=== PATIENT | female | born 1955 | race Caucasian/White ===

== ENCOUNTER 2017-02-18 20:26 | Emergency (ER) | payer OTHER ==
[2017-02-18 20:35] VITALS: BP 150/89; PULSE 76; TEMP 98; BMI 25.3
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
== END 2017-02-18 22:14 | disposition home or self-care (01) ==
LOC: FER 20:26
DX: S80.12XA Contusion of left lower leg, initial encounter (principal); I10 Essential (primary) hypertension; F41.9 Anxiety disorder, unspecified; V48.4XXA Person boarding or alighting a car injured in noncollision transport accident, initial encounter; Y93.89 Activity, other specified; Y92.89 Other specified places as the place of occurrence of the external cause
CPT/HCPCS: 73590-TC-LT; 99282-25